=== PATIENT | male | born 1930 | race Caucasian/White ===

== ENCOUNTER 2017-07-11 12:28 | Emergency (ER) | payer OTHER ==
[2017-07-11 12:48] VITALS: BP 123/70; TEMP 98.3; BMI 30.9
[2017-07-11 12:59] LABS: PH,URINE 5.5 (4.5-8); URINE BILIRUBIN Negative (NEGATIVE); URINE BLOOD 3+ (NEGATIVE); URINE COLOR YELLOW; URINE GLUCOSE (UA) Negative (NEGATIVE); URINE KETONE Trace (NEGATIVE); URINE LEUK ESTERASE 3+ (NEGATIVE); URINE NITRITE Negative (NEGATIVE); URINE PROTEIN 2+ (NEGATIVE); URINE UROBILINOGEN 0.2 (0.2-1.0)
[2017-07-11 13:00] LABS: URINE APPEARANCE CLOUDY
[2017-07-11 13:08] LABS: URINE RBC >100 /hpf (0-3)
[2017-07-11 13:09] LABS: EPI CELLS FEW /HPF; URINE BACTERIA MODERATE /hpf (NEGATIVE); URINE WBC >100 (0-2)
--- NOTE | 2017-07-11 13:16 | PDOC ---
History of Present Illness - General Chief Complaint: Urinary Problem Stated Complaint: POSSIBLE UTI Time Seen by Provider: 07/11/17 12:44 - History of Present Illness Initial Comments: 07/11/17 13:20 87-year-old male with a history of BPH, hypertension presents emergency Department with 1 day of dysuria and cloudy urine. He checked his temperature at home and found it to be 99.5 max. He is eating and drinking normally. He denies any nausea, vomiting, abdominal/flank pain. Denies chest pain, shortness of breath, weakness, dizziness. Denies headache. Reports this feels like his previous urinary tract infections which usually get better with antibiotic pills. He is here with his son in law who lives close by. Pt lives by himself. Past History - Past Medical History Allergies/Adverse Reactions: Allergies Allergy/AdvReac Type Severity Reaction Status Date / Time No Known Allergies Allergy Verified 07/11/17 12:30 Home Medications: Ambulatory Orders Amlodipine Besylate 10 mg PO DAILY 07/11/17 Cholecalciferol (Vitamin D3) [Vitamin D] 2,000 unit PO DAILY 07/11/17 Ciprofloxacin [Cipro -] 500 mg PO Q12H #14 tablet 07/11/17 Dorzolamide HCl [Trusopt 2% -] 1 drop OU BID 07/11/17 Ginkgo Biloba Musella Extract [Ginkgo Biloba] 450 mg PO DAILY 07/11/17 Latanoprost 0.005% Eye Drops [Xalatan 0.005% Eye Drops -] 1 drop OU BID Lisinopril [Prinivil -] 40 mg PO DAILY 07/11/17 Tamsulosin HCl [Flomax] 0.8 mg PO DAILY 07/11/17 Vit C/E/Zn/Coppr/Lutein/Zeaxan [Preservision Areds 2 Softgel] 1 cap PO DAILY Cancer: Yes (BLADDER 1986) COPD: No HTN: Yes Hypercholesterolemia: Yes Other medical history: MACULA DEGENERATION - Immunization History Immunization Up to Date: No - Suicide/Smoking/Psychosocial Hx Smoking History: Former smoker Have you smoked in the past 12 months: No Number of Cigarettes Smoked Daily: 0 If you are a former smoker, when did you quit?: 30 YEARS AGO Information on smoking cessation initiated: No Hx Alcohol Use: Yes (RARELY SOCIAL) Drug/Substance Use Hx: No Substance Use Type: Alcohol Review of Systems - Review of Systems Comments:: 07/11/17 13:23 GENERAL/CONSTITUTIONAL: No fever or chills. No weakness. HEAD, EYES, EARS, NOSE AND THROAT: No change in vision. No ear pain or discharge. No sore throat. GASTROINTESTINAL: No nausea, vomiting, diarrhea or constipation. GENITOURINARY: +dysuria, cloudy urine, no frequency, or change in urination. CARDIOVASCULAR: No chest pain or shortness of breath. RESPIRATORY: No cough, wheezing, or hemoptysis. MUSCULOSKELETAL: No joint or muscle swelling or pain. No neck or back pain. SKIN: No rash NEUROLOGIC: No headache, vertigo, loss of consciousness, or change in strength/ sensation. ENDOCRINE: No increased thirst. No abnormal weight change. HEMATOLOGIC/LYMPHATIC: No anemia, easy bleeding, or history of blood clots. ALLERGIC/IMMUNOLOGIC: No hives or skin allergy. *Physical Exam - Vital Signs Last Vital Signs Temp Pulse Resp BP Pulse Ox 98.3 F 102 H 20 123/70 97 07/11/17 12:30 07/11/17 12:30 07/11/17 12:30 07/11/17 12:30 07/11/17 12:30 - Physical Exam Comments: 07/11/17 13:24 GENERAL: Awake, alert, and fully oriented, in no acute distress HEAD: No signs of trauma EYES: PERRLA, EOMI, sclera anicteric, conjunctiva clear ENT: Auricles normal inspection, hearing grossly normal, nares patent, oropharynx clear without exudates. Moist mucosa NECK: Normal ROM, supple, no lymphadenopathy, JVD, or masses LUNGS: Breath sounds equal, clear to auscultation bilaterally. No wheezes, and no crackles HEART: Regular rate and rhythm, normal S1 and S2, no murmurs, rubs or gallops ABDOMEN: Soft, nontender, normoactive bowel sounds. No guarding, no rebound. No masses. No CVAT. EXTREMITIES: Normal range of motion, no edema. No clubbing or cyanosis. No cords, erythema, or tenderness NEUROLOGICAL: Normal speech, cranial nerves intact, negative pronator drift, 5/ 5 strength in all 4 extremities, normal sensation to light touch in all 4 extremities, normal cerebellar exam, normal gait, normal reflexes and tone SKIN: Warm, Dry, normal turgor, no rashes or lesions noted. ED Treatment Course - ADDITIONAL ORDERS Additional order review: Laboratory Results 07/11/17 12:45 Urine Color Yellow Urine Appearance Cloudy Urine pH 5.5 Ur Specific [place] 1.020 Urine Protein 2+ H Urine Glucose (UA) Negative Urine Ketones Trace Urine Blood 3+ H Urine Nitrite Negative Urine Bilirubin Negative Urine Urobilinogen 0.2 Ur Leukocyte Esterase 3+ H Urine RBC >100 Urine WBC >100 Ur Epithelial Cells Few Urine Bacteria Moderate Medical Decision Making - Medical Decision Making 07/11/17 13:24 87-year-old male with a history of hypertension, BPH presents to the emergency department with dysuria and cloudy urine. Vitals initially with mild tachycardia to 102, on my exam heart rate 88. Exam within normal limits with no abdominal tenderness to palpation and no CVA tenderness. Urinalysis with evidence of UTI. On review of previous microbiology, patient had pansensitive enterococcus and pansensitive staph, both sensitive to fluoroquinolones. Patient has been successfully treated with ciprofloxacin in the past, will prescribe. Repeat vitals within normal limits, pt is well appearing. Patient has a follow-up appointment next week with Dr. Reyes. I discussed the physical exam findings, ancillary test results and final diagnoses with the patient. I answered all of the patient's questions. The patient was satisfied with the care received and felt comfortable with the discharge plan and treatment plan. The patient will call their primary care physician within 24 hours to arrange follow-up and will return to the Emergency Department with any new, persistent or worsening symptoms. *DC/Admit/Observation/Transfer Diagnosis at time of Disposition: UTI (urinary tract infection) - Discharge Dispostion Disposition: HOME Condition at time of disposition: Stable Admit: No - Prescriptions Prescriptions: Ciprofloxacin [Cipro -] 500 mg PO Q12H #14 tablet - Referrals - Patient Instructions Printed Discharge Instructions: DI for Urinary Tract Infection (UTI) Additional Instructions: Follow-up with your primary care doctor within 2-3 days. Take the antibiotics as prescribed twice a day, do not miss any doses. Drink plenty of fluids and stay hydrated. Return to the emergency department if you have any new, worsening or concerning symptoms. - Post Discharge Activity - Attestations Physician Attestion: 07/11/17 13:16 I, Dr. Anila Gupta MD, attest that this document has been prepared under my direction and personally reviewed by me in its entirety. I further attest, that it accurately reflects all work, treatment, procedures and medical decision -making performed by me.
[2017-07-11 13:32] VITALS: PULSE 82
== END 2017-07-11 13:32 | disposition home or self-care (01) ==
LOC: FER 12:28
DX: N39.0 Urinary tract infection, site not specified (principal); I10 Essential (primary) hypertension; N40.0 Benign prostatic hyperplasia without lower urinary tract symptoms
CPT/HCPCS: 81003; 81015; 87086; 99281-25